=== PATIENT | male | born 1940 | race Caucasian/White ===

== ENCOUNTER 2017-11-11 06:32 | Day surgery (SDC) | payer OTHER ==
[2017-11-11] MEDS ORDERED: IOHEXOL 350 MG/ML 50 ML BTL (for Cath Lab) OTHER ONE (06:33)
[2017-11-11 07:34] LABS: AUTOMATED NEUTROPHIL # 4.5 TH/MM3 (1.8-7.7); BASOPHIL # 0.1 TH/MM3 (0-0.2); BASOPHIL % 1.1 % (0.0-2.0); EOSINOPHIL # 0.1 TH/MM3 (0-0.4); EOSINOPHIL % 1.3 % (0.0-4.0); HEMATOCRIT 45.6 % (39.0-51.0); HEMO FLAGS DIFF FINAL; LYMPH % 16.9 % (9.0-44.0); MEAN CELL VOLUME 94.7 FL (80.0-100.0); MEAN CORPUSCULAR HEMOGLOBIN 32.6 PG (27.0-34.0); MEAN CORPUSCULAR HGB CONC 34.4 % (32.0-36.0); MONO % 7.5 % (0.0-8.0); NEUT % 73.2 % (16.0-70.0); PLATELET COUNT 155 TH/MM3 (150-450); RED BLOOD COUNT 4.82 MIL/MM3 (4.50-5.90); RED CELL DISTRIBUTION WIDTH 13.1 % (11.6-17.2); WHITE BLOOD COUNT 6.1 TH/MM3 (4.0-11.0)
[2017-11-11 07:39] VITALS: BP 139/77; PULSE 51; RESP 18; TEMP 98.2; O2SAT 92
[2017-11-11 07:43] LABS: APTT (PATIENT) 26.4 SEC (24.3-30.1); PROTHROMBIN TIME - PATIENT 10.4 SEC (9.8-11.6)
[2017-11-11] MEDS ORDERED: ASPI1CHW4 CHEW (07:45)
[2017-11-11] MEDS ORDERED: PRED10 PO (07:45)
[2017-11-11] MEDS ORDERED: LEVO.125 PO (07:45)
[2017-11-11] MEDS ORDERED: ISOS30TA3 PO (07:45)
[2017-11-11] MEDS ORDERED: HYDR12.56 PO (07:45)
[2017-11-11] MEDS ORDERED: ONE-TAB14 (07:45)
[2017-11-11 07:51] LABS: BICARBONATE 29.9 MEQ/L (21.0-32.0); POTASSIUM 3.6 MEQ/L (3.5-5.1)
[2017-11-11] MEDS ORDERED: FLUTI220I INH (08:00)
[2017-11-11] MEDS ORDERED: ATOR80TA45 PO (08:00)
[2017-11-11] MEDS ORDERED: HEPARIN-NS/PF INJ 1,000 ML ONE (08:20)
[2017-11-11] MEDS ORDERED: MIDAZOLAM HCL 2 MG/2 ML VIAL ONE (08:21)
[2017-11-11] MEDS ORDERED: VERAPAMIL HCL 5 MG/2 ML VIAL ONE (08:21)
[2017-11-11] MEDS ORDERED: HEPARIN SODIUM - IV 10,000 UNITS/10 ML VIAL ONE (08:21)
[2017-11-11] MEDS ORDERED: NITROGLYCERIN INJ 5 ML ONE (08:21)
[2017-11-11] MEDS ORDERED: MISC INFORMATION XX ONE (09:30)
--- NOTE | 2017-11-11 09:36 | MA ---
cc: KOJO POWELL DO DATE OF PROCEDURE November 11, 2017 PROCEDURE Left heart catheterization, coronary angiogram, moderate sedation 15 minutes. PREPROCEDURE DIAGNOSES Chest pain. Abnormal stress test. 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 MEDICATIONS 1. Versed 0.5 mg. 2. Fentanyl 50 mcg. 3. Verapamil 2.5 mg. 4. Nitro 200 mcg. 5. Heparin 3400 units. CONTRAST USED 40 cc. FLUOROSCOPY 2.2 minutes MODERATE SEDATION 15 minutes ESTIMATED BLOOD LOSS 10 cc. PROCEDURAL SUMMARY Darrel Cornelius is a pleasant 76-year-old male who sees my partner Dr. 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 The patient started having more chest pain and because of this he was recommended cardiac catheterization. The risks, benefits and alternatives were explained to him and he consented as such. He was brought to lab and prepped in the usual sterile fashion. Right radial artery was accessed using a modified Seldinger technique and placement of a 5/6 [place] Slender Sheath. This was easily aspirated and flushed. A JR-4 was advanced over a J-wire to the ascending aorta and across the aortic valve for measurement of left ventricular pressure. This was pulled back across the aortic valve showing no significant gradient of aortic stenosis. A JR-4 was then used for selective angiography of the right coronary artery system. This was exchanged out for a JL-3.5 which was used for selective angiography of the left coronary artery system. The JL-3.5 was removed over a J-wire. Radial band was placed over the arteriotomy site for hemostasis. 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 FINDINGS LEFT MAIN: Normal-sized vessel with adequate reflux and no significant disease. It bifurcates into an LAD and circumflex. LAD: Normal-size vessel with mild luminal irregularities and mild tortuosity throughout. It supplies a number of smaller diagonals with no significant disease. LEFT CIRCUMFLEX: Normal-sized vessel with mild luminal irregularities throughout. It supplies two major obtuse marginals with the first one having a 30% ostial stenosis but otherwise no significant disease. RCA: Mild luminal irregularities throughout the proximal portion. The midportion has a stent that is 100% occluded. Collaterals from the left side supply the distal right coronary artery. LVEDP: 8. IMPRESSIONS 1. Coronary artery disease with a CT of the RCA at a previous stent with [id number] collaterals. RECOMMENDATIONS 1. Mr. Cornelius appears to have a EXTENSION WORK DIRECTOR of his RCA and this will be treated medically. In discussing with him, he has not had chest pain since seeing me in the office. 2. He will follow up with Dr. Workman. 3. If further chest pain, I would try to optimize his medications as best as possible. If chest pain is unable to be controlled despite medications, consideration could be made for an attempt of his right coronary artery EXTENSION WORK DIRECTOR although this may be difficult as there is an RV branch that comes off right at the occlusion which may hinder an antegrade attempt. Thank you for allowing me to see Darrel Cornelius. If there are any questions please do not hesitate to call. Kojo Powell DO VGP/SSB /9:10 AM /9:19 AM
--- NOTE | 2017-11-11 15:32 | EKG ---
Date Performed: 11/11/2017 Time Performed: 06:58:20 PTAGE: 76 years EKG: Sinus arrhythmia with multifocal PVCs. Left axis deviation Inferior infarct - age undetermi johnathan Possible anterior infarct - age undetermined Abnormal ECG Compared to PREVIOUS TRACING , there are occasional PVCs present. Heart rate has increased somewhat. PREVIOUS TRACIN07/06/2004 11.30 DOCTOR: Michael Urbina Interpretating Date/Time 11/11/2017 15:32:06
== END 2017-11-11 12:41 | disposition home or self-care (01) ==
LOC: HCAT 06:32 → HDIC 06:33 → HCAT 12:41
PROVIDERS: ATTEND Nuclear Medicine Nuclear Cardiology
DX: I25.10 Atherosclerotic heart disease of native coronary artery without angina pectoris (principal); I11.9 Hypertensive heart disease without heart failure; R94.39 Abnormal result of other cardiovascular function study; I25.2 Old myocardial infarction; E78.5 Hyperlipidemia, unspecified; R06.00 Dyspnea, unspecified
CPT/HCPCS: 80048; 85025; 85610; 85730; 93005; 93458; 99152; C1769; C1893; J1644; J2250; J3010; Q9967